=== PATIENT | male | born 1960 | race Caucasian/White ===

== ENCOUNTER → 2017-10-09 | Day surgery (SDC) | payer OTHER ==
[~2017-10-09] MED LIST: IV RINGERS,LACTATED 1000ML 1,000 ML IV; PROPOFOL 40 ML IV
== END | disposition home or self-care (01) ==
LOC: SURG 14:51
DX: Z12.11 Encounter for screening for malignant neoplasm of colon (principal); K64.0 First degree hemorrhoids
CPT/HCPCS: 45378; J2704